=== PATIENT | male | born 1950 | race Hispanic/Latino ===

== ENCOUNTER 2017-06-23 17:15 | Inpatient (IN) | payer MEDICARE ==
[~2017-06-23] VITALS: Ht 170.2 cm; Wt 104.5 kg
[2017-06-23] MEDS: ZOSYN 3.375GM+NS 50ML 50 ML IV SCH ×2 (09:00→21:00)
[~2017-06-23 17:15] MED LIST: AMLO5TAB2 PO; CITA40TA6 PO; LEVO25TA54 PO; LISI10TA7 PO; METO50 PO; SEVE800T7 PO; SIMV10TA6 PO
[2017-06-23] MEDS ORDERED: ACETAMINOPHEN EXTRA STRENGTH 500 MG TABLET ONE (17:26)
[2017-06-23 17:59] LABS: BASOPHILS % (AUTO) 0.5 % (0.0-5.0); EOSINOPHILS % (AUTO) 0.6 % (0.0-8.0); LYMPHOCYTES % (AUTO) 3.3 % (21.0-51.0); MEAN CORPUSCULAR HGB CONC 34.4 g/dL (32.0-36.0); MONOCYTES % (AUTO) 4.1 % (3.0-13.0); NEUTROPHILS % (AUTO) 91.5 % (40.0-77.0); PLATELET COUNT (AUTO) 166 K/uL (130-400); RED BLOOD CELL COUNT(AUTO) 3.02 MIL/uL (4.50-6.20); RED CELL DISTRIBUTION WIDTH 14.2 % (11.0-15.5); WHITE BLOOD COUNT (AUTO) 13.4 K/uL (4.8-10.8)
[2017-06-23 18:15] LABS: INR 1.03 (0.85-1.15); PARTIAL THROMBOPLASTIN TIME 25.6 SEC (26.3-35.5); PROTHROMBIN TIME 10.8 SEC (9.6-11.6)
[2017-06-23] MEDS ORDERED: ZOSYN 3.375GM+NS 50ML 50 ML IV ONE (18:20)
[2017-06-23 18:28] LABS: ALANINE AMINOTRANSFERASE 16 U/L (12-78); ALBUMIN 3.5 g/dL (3.5-5.0); ASPARTATE AMINOTRANSFERASE 17 U/L (10-37); BILIRUBIN,TOTAL 0.5 mg/dL (0.2-1.0); CARBON DIOXIDE 30 mmol/L (21-32); CHLORIDE 101 mmol/L (101-111); CREATINE KINASE MB 0.9 ng/mL (0.5-3.6); CREATINE KINASE, TOTAL 111 U/L (21-232); GLOMERULAR FILTR. RATE CALC 7 mL/min (>60); GLUCOSE,RANDOM 96 mg/dL (70-105); MYOGLOBIN 281 ng/mL (10-92); POTASSIUM 3.8 mmol/L (3.5-5.1); SODIUM SERUM 141 mmol/L (136-145); TOTAL PROTEIN, SERUM 7.4 g/dL (6.0-8.3); TROPONIN I < 0.04 ng/mL (0.00-0.06); UREA NITROGEN, BLOOD 32 mg/dL (7-18)
[2017-06-23] MEDS ORDERED: VANCOMYCIN 1GM+NS 250ML 0 ML IV ONE (19:09)
[2017-06-23] MEDS ORDERED: VANCOMYCIN PROTOCOL PER PHARMACY IV SCH (20:00)
[2017-06-23] MEDS ORDERED: SODIUM CHLORIDE 0.9% 10 ML VIAL IVP SCH (20:00)
[2017-06-23] MEDS ORDERED: ACETAMINOPHEN 325 MG TAB PO PRN ×2 (20:00)
[2017-06-23] MEDS ORDERED: GLUCAGON 1MG KIT 1 MG ML IM PRN (20:00)
[2017-06-23] MEDS ORDERED: POTASSIUM CHLORIDE 10% ELIXIR 20 MEQ/15 ML UDCUP PO PRN (20:00)
[2017-06-23] MEDS ORDERED: POTASSIUM CHLORIDE 20 MEQ ERTAB PO PRN (20:00)
[2017-06-23] MEDS ORDERED: CLONIDINE HCL 0.1 MG TABLET PO PRN (20:00)
[2017-06-23] MEDS ORDERED: LACTULOSE 20 GM/30 ML UDCUP PO PRN (20:00)
[2017-06-23] MEDS ORDERED: POTASSIUM CHLORIDE 20MEQ/100ML 100 ML IV PRN (20:00)
[2017-06-23] MEDS ORDERED: DEXTROSE 50%-WATER 50 ML DISP.SYRIN IV PRN (20:00)
[2017-06-23] MEDS ORDERED: LIDOCAINE HCL-MPF 1% 2ML VIAL IJ PRN (20:00)
[2017-06-23] MEDS: INSULIN R PO SSI SQ SCH (21:00)
[2017-06-23 23:08] LABS: BAND NEUTROPHILS % (MANUAL) 7 % (0-2); EOSINOPHILS % (MANUAL) 1 % (1-6); LYMPHOCYTES % (MANUAL) 10 % (22-44); MAN.DIFF COMMENT-IMPRESSION MANUAL DIFFERENTIAL; MONOCYTES % (MANUAL) 3 % (2-9); PLATELET MORPHOLOGY COMMENT ADEQUATE; SEGMENTED NEUTROPHILS % 79 % (40-70)
[2017-06-23] MEDS ORDERED: SODIUM CHLORIDE 0.9% 250 ML IV ONE (23:20)
[2017-06-23] MEDS: VANCOMYCIN 500MG+NS 100ML 100 ML IV SCH (23:31)
[2017-06-24] VITALS (7 sets, daily range): BP systolic 123–165; BP diastolic 69–89
[2017-06-24] MEDS ORDERED: HYDRALAZINE HCL 20 MG/ML VIAL IV PRN (02:15)
[2017-06-24] MEDS ORDERED: GUAIFENESIN-DM 200/20 MG 10 ML PO PRN (02:15)
[2017-06-24] MEDS ORDERED: IPRATROPIUM/ALBUTEROL SULFATE 3 ML SOLUTION IH SCH (06:00)
[2017-06-24 06:08] LABS: BASOPHILS % (AUTO) 0.9 % (0.0-5.0); EOSINOPHILS % (AUTO) 0.2 % (0.0-8.0); HEMATOCRIT 27.7 % (42-54); LYMPHOCYTES % (AUTO) 7.1 % (21.0-51.0); MEAN CORPUSCULAR HEMOGLOBIN 32.3 pg (27.0-33.0); MEAN CORPUSCULAR HGB CONC 33.3 g/dL (32.0-36.0); MEAN CORPUSCULAR VOLUME 96.8 fL (79-99); MONOCYTES % (AUTO) 6.2 % (3.0-13.0); NEUTROPHILS % (AUTO) 85.6 % (40.0-77.0); PLATELET COUNT (AUTO) 166 K/uL (130-400); RED BLOOD CELL COUNT(AUTO) 2.87 MIL/uL (4.50-6.20); RED CELL DISTRIBUTION WIDTH 14.1 % (11.0-15.5); WHITE BLOOD COUNT (AUTO) 12.3 K/uL (4.8-10.8)
[2017-06-24 06:23] LABS: POTASSIUM 4.1 mmol/L (3.5-5.1)
[2017-06-24 06:28] LABS: CREATININE 9.9 mg/dL (0.5-1.5)
[2017-06-24] MEDS: INSULIN R PO SSI SQ SCH ×4 (06:49→21:00)
[2017-06-24] MEDS: ZOSYN 3.375GM+NS 50ML 50 ML IV SCH ×2 (08:27→22:13)
[2017-06-24] MEDS: FAMOTIDINE 20MG TAB 20 MG TAB PO SCH (08:27)
[2017-06-24] MEDS: AMLODIPINE BESYLATE 5 MG TAB PO SCH (12:02)
[2017-06-24] MEDS: SEVELAMER HCL 800 MG TABLET PO SCH ×2 (12:02→17:35)
[2017-06-24] MEDS: IPRATROPIUM/ALBUTEROL SULFATE 3 ML SOLUTION IH SCH ×2 (13:51→21:45)
[2017-06-24] MEDS ORDERED: VANCOMYCIN 1GM+NS 250ML 250 ML IV SCH (15:00)
[2017-06-24] MEDS: VANCOMYCIN 500MG+NS 100ML 100 ML IV SCH (21:00)
[2017-06-25 04:00] VITALS: BP 157/71
[2017-06-25 04:48] LABS: BASOPHILS % (AUTO) 0.9 % (0.0-5.0); EOSINOPHILS % (AUTO) 1.8 % (0.0-8.0); HEMATOCRIT 25.6 % (42-54); LYMPHOCYTES % (AUTO) 11.1 % (21.0-51.0); MEAN CORPUSCULAR HEMOGLOBIN 34.1 pg (27.0-33.0); MEAN CORPUSCULAR HGB CONC 35.3 g/dL (32.0-36.0); MEAN CORPUSCULAR VOLUME 96.5 fL (79-99); MONOCYTES % (AUTO) 9.6 % (3.0-13.0); NEUTROPHILS % (AUTO) 76.6 % (40.0-77.0); PLATELET COUNT (AUTO) 157 K/uL (130-400); RED BLOOD CELL COUNT(AUTO) 2.65 MIL/uL (4.50-6.20); RED CELL DISTRIBUTION WIDTH 14.3 % (11.0-15.5); WHITE BLOOD COUNT (AUTO) 6.3 K/uL (4.8-10.8)
[2017-06-25 05:06] LABS: POTASSIUM 3.9 mmol/L (3.5-5.1)
[2017-06-25 05:12] LABS: CREATININE 11.7 mg/dL (0.5-1.5)
[2017-06-25] MEDS: INSULIN R PO SSI SQ SCH ×4 (06:08→21:00)
[2017-06-25] MEDS: IPRATROPIUM/ALBUTEROL SULFATE 3 ML SOLUTION IH SCH ×3 (06:52→21:18)
[2017-06-25 08:26] VITALS: BP 151/79
[2017-06-25] MEDS: SEVELAMER HCL 800 MG TABLET PO SCH ×3 (08:31→17:08)
[2017-06-25] MEDS: AMLODIPINE BESYLATE 5 MG TAB PO SCH (08:32)
[2017-06-25] MEDS: FAMOTIDINE 20MG TAB 20 MG TAB PO SCH (08:32)
[2017-06-25] MEDS: ENOXAPARIN SODIUM 30 MG/0.3 ML SQ SCH (08:32)
[2017-06-25] MEDS: ZOSYN 3.375GM+NS 50ML 50 ML IV SCH ×2 (08:32→22:09)
[2017-06-25 11:56] VITALS: BP 165/80
[2017-06-25] MEDS ORDERED: 0.9% SODIUM CHLORIDE 250 ML IV BAG IV PRN (12:45)
[2017-06-25] MEDS ORDERED: SODIUM CHLORIDE 0.9% 1000ML 1,000 ML IV PRN (12:45)
[2017-06-25] MEDS ORDERED: ALBUMIN (HUMAN) 25% 100 ML IV PRN (12:45)
[2017-06-25] MEDS ORDERED: HEPARIN SODIUM 5000UNIT/ML 1ML VIAL IJ PRN (12:45)
[2017-06-25] MEDS ORDERED: EPOETIN ALFA 3,000 UNIT/ML ML SQ NR (15:00)
[2017-06-25 16:23] VITALS: BP 169/64
[2017-06-25] MEDS ORDERED: EPOETIN ALFA 20,000 UNIT/ML VIAL SQ NR (17:43)
[2017-06-25] MEDS ORDERED: COMPOUND IV REFRIGERATED 1 EACH IVSOLN MISC PRN (18:45)
[2017-06-25 19:56] VITALS: BP 153/76
[2017-06-25] MEDS ORDERED: ATORVASTATIN CALCIUM 10 MG TABLET PO SCH (21:00)
[2017-06-25] MEDS: METOPROLOL TARTRATE 50 MG TAB PO SCH (22:08)
[2017-06-25] MEDS ORDERED: GUAIFENESIN-DM 200/20 MG 10 ML PO PRN (22:30)
[2017-06-26] VITALS: BP 164/70
[2017-06-26 04:00] VITALS: BP 154/77
[2017-06-26 04:02] LABS: BASOPHILS % (AUTO) 0.9 % (0.0-5.0); EOSINOPHILS % (AUTO) 3.4 % (0.0-8.0); HEMATOCRIT 27.3 % (42-54); MEAN CORPUSCULAR HEMOGLOBIN 32.6 pg (27.0-33.0); MEAN CORPUSCULAR VOLUME 95.8 fL (79-99); NEUTROPHILS % (AUTO) 70.7 % (40.0-77.0); NUCLEATED RED BLOOD CELLS 0.1 % (0.0-0.19); PLATELET COUNT (AUTO) 170 K/uL (130-400); RED BLOOD CELL COUNT(AUTO) 2.85 MIL/uL (4.50-6.20); RED CELL DISTRIBUTION WIDTH 14.3 % (11.0-15.5); WHITE BLOOD COUNT (AUTO) 5.6 K/uL (4.8-10.8)
[2017-06-26 04:24] LABS: POTASSIUM 3.8 mmol/L (3.5-5.1)
[2017-06-26 04:36] LABS: CREATININE 8.7 mg/dL (0.5-1.5)
[2017-06-26] MEDS: INSULIN R PO SSI SQ SCH (06:15)
[2017-06-26] MEDS: IPRATROPIUM/ALBUTEROL SULFATE 3 ML SOLUTION IH SCH (06:16)
[2017-06-26] MEDS ORDERED: LEVOTHYROXINE 25 MCG TABLET PO SCH (06:30)
[2017-06-26 08:08] VITALS: BP 173/78
[2017-06-26] MEDS ORDERED: LISINOPRIL 10 MG TABLET PO SCH (09:00)
[2017-06-26] MEDS ORDERED: CITALOPRAM 20 MG TABLET PO SCH (09:00)
[2017-06-26] MEDS: FAMOTIDINE 20MG TAB 20 MG TAB PO SCH (09:12)
[2017-06-26] MEDS: METOPROLOL TARTRATE 50 MG TAB PO SCH (09:12)
[2017-06-26] MEDS: SEVELAMER HCL 800 MG TABLET PO SCH (09:12)
[2017-06-26] MEDS: ZOSYN 3.375GM+NS 50ML 50 ML IV SCH (09:12)
[2017-06-26] MEDS: AMLODIPINE BESYLATE 5 MG TAB PO SCH (09:12)
[2017-06-26] MEDS: ENOXAPARIN SODIUM 30 MG/0.3 ML SQ SCH (09:13)
== END 2017-06-26 11:30 | disposition home or self-care (01) | DRG 871 ==
LOC: EDH 17:15 → EDHIP 19:40 → OBSVTOIN 19:40 → 3CH 21:26
PROVIDERS: ADMIT Family Medicine; ATTEND Family Medicine
PROC: 5A1D70Z Performance of Urinary Filtration, Intermittent, Less than 6 Hours Per Day (ICD-10-PCS; principal; 2017-06-25)
DX: A41.9 Sepsis, unspecified organism (principal); N18.6 End stage renal disease; I12.0 Hypertensive chronic kidney disease with stage 5 chronic kidney disease or end stage renal disease; E11.22 Type 2 diabetes mellitus with diabetic chronic kidney disease; Z93.0 Tracheostomy status; L03.116 Cellulitis of left lower limb; W19.XXXA Unspecified fall, initial encounter; D63.8 Anemia in other chronic diseases classified elsewhere; E03.9 Hypothyroidism, unspecified; E78.00 Pure hypercholesterolemia, unspecified; E78.5 Hyperlipidemia, unspecified; I25.10 Atherosclerotic heart disease of native coronary artery without angina pectoris; J44.9 Chronic obstructive pulmonary disease, unspecified; Z99.2 Dependence on renal dialysis; Z87.891 Personal history of nicotine dependence; Z86.73 Personal history of transient ischemic attack (TIA), and cerebral infarction without residual deficits; Y93.89 Activity, other specified; Y92.89 Other specified places as the place of occurrence of the external cause; Y99.8 Other external cause status; Z83.3 Family history of diabetes mellitus; Z82.49 Family history of ischemic heart disease and other diseases of the circulatory system
CPT/HCPCS: 36415; 71045; 71250; 80048; 80053; 82550; 82553; 82948; 83605; 83874; 84484; 85025; 85610; 85730; 87040; 87804; 90935; 93005; 94640; 94664; J0360; J0885; J1650; J2543; J3370; J7030

== ENCOUNTER 2019-03-31 20:05 | Observation (INO) | payer MEDICARE ==
[~2019-03-31] VITALS: Ht 170.2 cm; Wt 91.7 kg
[~2019-03-31 20:05] MED LIST changes: -AMLO5TAB2 PO; +AMLO5TAB9 PO; +HYDR-2132 PO; +LISI-613 PO; -LISI10TA7 PO; -SIMV10TA6 PO; +SIMV10TA97 PO
[2019-03-31 20:56] LABS: BASOPHILS % (AUTO) 1.1 % (0.0-5.0); EOSINOPHILS % (AUTO) 3.4 % (0.0-8.0); HEMATOCRIT 32.8 % (42-54); LYMPHOCYTES % (AUTO) 8.6 % (21.0-51.0); MEAN CORPUSCULAR HEMOGLOBIN 30.2 pg (27.0-33.0); MEAN CORPUSCULAR HGB CONC 30.8 g/dL (32.0-36.0); MEAN CORPUSCULAR VOLUME 98.2 fL (79-99); MONOCYTES % (AUTO) 9.7 % (3.0-13.0); NEUTROPHILS % (AUTO) 76.8 % (40.0-77.0); PLATELET COUNT (AUTO) 177 K/uL (130-400); RED BLOOD CELL COUNT(AUTO) 3.34 MIL/uL (4.50-6.20); RED CELL DISTRIBUTION WIDTH 15.5 % (11.0-15.5); WHITE BLOOD COUNT (AUTO) 7.5 K/uL (4.8-10.8)
[2019-03-31 21:13] LABS: INR 1.11 (0.85-1.15); PARTIAL THROMBOPLASTIN TIME 28.2 SEC (26.3-35.5); PROTHROMBIN TIME 11.6 SEC (9.6-11.6)
[2019-03-31 21:14] LABS: CREATININE 6.1 mg/dL (0.5-1.5)
[2019-03-31 21:18] LABS: ALBUMIN 3.3 g/dL (3.5-5.0); BILIRUBIN,TOTAL 0.5 mg/dL (0.2-1.0); TOTAL PROTEIN, SERUM 7.3 g/dL (6.0-8.3)
[2019-04-01] MEDS ORDERED: LEVOFLOXACIN 500 MG/D5W 100 ML 100 ML ONE (00:19)
[2019-04-01] MEDS ORDERED: ZOSYN 3.375GM+NS 50ML 50 ML IV ONE (01:43)
[2019-04-01] MEDS ORDERED: VANCOMYCIN 1GM+NS 250ML 250 ML IV ONE (01:46)
[2019-04-01] MEDS ORDERED: GLUCAGON 1MG KIT 1 MG ML IM PRN (02:15)
[2019-04-01] MEDS ORDERED: DEXTROSE 50%-WATER 50 ML DISP.SYRIN IV PRN (02:15)
[2019-04-01] MEDS ORDERED: IPRATROPIUM/ALBUTEROL SULFATE 3 ML SOLUTION IH ONE (02:24)
[2019-04-01] MEDS: IPRATROPIUM/ALBUTEROL SULFATE 3 ML SOLUTION IH PRN ×2 (02:30→05:42)
[2019-04-01 02:45] VITALS: BP 173/84
--- NOTE | 2019-04-01 03:34 | NUR ---
HOME MEDS Pt did not bring home meds.No family available. Addendum: 04/01/19 at 0343 by PAMELA NIELSEN RN RN Amended: Links added.
--- NOTE | 2019-04-01 03:42 | NUR ---
av graft pt has non functioning graft to left upper arm.Left thigh av graft with bruit and thrill Addendum: 04/01/19 at 0343 by PAMELA NIELSNE RN RN Amended: Links added.
[2019-04-01] MEDS: INSULIN R PO SS1 SQ SCH ×3 (06:01→16:30)
[2019-04-01 07:30] VITALS: BP 153/75
[2019-04-01 11:00] VITALS: BP 148/79
[2019-04-01] MEDS ORDERED: LEVO250T59 PO (12:54)
--- NOTE | 2019-04-01 15:01 | NUR ---
[id number] patient signed SKAGGS Letter, I faxed SKAGGS Letter to [phone] and placed in chart under consent tab
--- NOTE | 2019-04-01 17:28 | NUR ---
SEVERAL ATTEMPTS TO CALL DAUGHTER AT PHONE NUMBER [phone],NO ANSWER AND UNABLE TO LEAVE MESSAGE, ALSO CALLED TO SON AT NUMBER [phone] ,NO ANSWER . PATIENT HAS BEEN DISCHARGED WILL CONT TO ATTEMPT TO GET OF HOLD OF DAUGHTER .
--- NOTE | 2019-04-01 17:47 | NUR ---
CALLED AGAIN TO PHONE NUMBER PROVIDED FOR DAUGHTER AND SON ,MESSAGE LEFT TO CALL BACK TO [facility] AT [phone] .. PENDING CALL BACK
[2019-04-02] MEDS ORDERED: LEVOFLOXACIN 250 MG/D5W 50ML 50 ML IVPB SCH
[2019-04-02] MEDS ORDERED: LEVOFLOXACIN 500 MG TABLET PO SCH (09:00)
== END 2019-04-01 19:14 | disposition home or self-care (01) ==
LOC: EDH 20:05 → EDHIP 23:45 → INTOOBSV 23:45 → 4DH 04-01 02:06
PROVIDERS: ADMIT Internal Medicine Nephrology; ATTEND Internal Medicine Nephrology
DX: J40 Bronchitis, not specified as acute or chronic (principal); J18.9 Pneumonia, unspecified organism; I12.0 Hypertensive chronic kidney disease with stage 5 chronic kidney disease or end stage renal disease; E11.22 Type 2 diabetes mellitus with diabetic chronic kidney disease; N18.6 End stage renal disease; E11.51 Type 2 diabetes mellitus with diabetic peripheral angiopathy without gangrene; I25.10 Atherosclerotic heart disease of native coronary artery without angina pectoris; Z99.2 Dependence on renal dialysis; Z98.84 Bariatric surgery status; Z93.0 Tracheostomy status; Z79.899 Other long term (current) drug therapy
CPT/HCPCS: 36415; 71045; 80053; 80074; 82550; 82948 ×3; 83605; 84484; 85025; 85610; 85730; 87040; 87804 ×2; 93005; 94640 ×2; 94664; 99285; G0378 ×19; J1956; J2543; J3370

== ENCOUNTER 2019-06-19 05:00 | Emergency (ER) | payer MEDICARE ==
[~2019-06-19 05:00] MED LIST changes: -AMLO5TAB9 PO; -CITA40TA6 PO; -HYDR-2132 PO; +LEVO250T59 PO; -LEVO25TA54 PO; -LISI-613 PO; -METO50 PO; -SEVE800T7 PO; -SIMV10TA97 PO
[2019-06-19 05:26] LABS: BASOPHILS % (AUTO) 1.1 % (0.0-5.0); EOSINOPHILS % (AUTO) 4.8 % (0.0-8.0); HEMATOCRIT 34.9 % (42-54); LYMPHOCYTES % (AUTO) 18.1 % (21.0-51.0); MEAN CORPUSCULAR HGB CONC 31.2 g/dL (32.0-36.0); MEAN CORPUSCULAR VOLUME 99.1 fL (79-99); MONOCYTES % (AUTO) 10.3 % (3.0-13.0); NEUTROPHILS % (AUTO) 65.2 % (40.0-77.0); PLATELET COUNT (AUTO) 177 K/uL (130-400); RED BLOOD CELL COUNT(AUTO) 3.52 MIL/uL (4.50-6.20); RED CELL DISTRIBUTION WIDTH 14.9 % (11.0-15.5); WHITE BLOOD COUNT (AUTO) 5.5 K/uL (4.8-10.8)
[2019-06-19 05:36] LABS: CREATININE 5.7 mg/dL (0.5-1.5); POTASSIUM 4.2 mmol/L (3.5-5.1)
[2019-06-19 05:40] LABS: INR 1.06 (0.85-1.15); PARTIAL THROMBOPLASTIN TIME 29.5 SEC (26.3-35.5); PROTHROMBIN TIME 11.4 SEC (9.6-11.6)
[2019-06-19 05:43] LABS: ALBUMIN 3.1 g/dL (3.5-5.0); BILIRUBIN,TOTAL 0.4 mg/dL (0.2-1.0); TOTAL PROTEIN, SERUM 7.1 g/dL (6.0-8.3)
== END 2019-06-19 07:08 | disposition home or self-care (01) ==
LOC: EDH 05:00
DX: T82.838A Hemorrhage due to vascular prosthetic devices, implants and grafts, initial encounter (principal); B37.2 Candidiasis of skin and nail; L89.159 Pressure ulcer of sacral region, unspecified stage; E11.9 Type 2 diabetes mellitus without complications; I10 Essential (primary) hypertension; Z99.2 Dependence on renal dialysis
CPT/HCPCS: 36415; 80053; 85025; 85610; 85730

== ENCOUNTER → 2019-06-29 | Outpatient (CLI) | payer MEDICARE ==
[~2019-06-29] MED LIST changes: +AMLO5TAB9 PO; +CITA-106 PO; +DONE5TAB33 PO; +LEVO25TA54 PO; +LIDOCAINE HCL 4% LTA SOL 4 ML VIAL TP ONE; +LISI10TA7 PO; +METO50 PO; +PREG50CA63 PO; +SEVE800 PO; +SIMV10TA97 PO
[2019-06-29 13:39] VITALS: BP 179/75
== END | disposition home or self-care (01) ==
LOC: WHH 10:00
PROVIDERS: ATTEND Family Medicine
DX: E11.622 Type 2 diabetes mellitus with other skin ulcer (principal); L89.153 Pressure ulcer of sacral region, stage 3; L98.492 Non-pressure chronic ulcer of skin of other sites with fat layer exposed; E11.22 Type 2 diabetes mellitus with diabetic chronic kidney disease; I12.0 Hypertensive chronic kidney disease with stage 5 chronic kidney disease or end stage renal disease; N18.6 End stage renal disease; Z99.2 Dependence on renal dialysis
CPT/HCPCS: 11042; 82948; A6196; A6213; G0463; 99215

== ENCOUNTER → 2019-07-13 | Outpatient (CLI) | payer MEDICARE ==
[~2019-07-13] MED LIST changes: +AMLO-257 PO; -AMLO5TAB9 PO; -LIDOCAINE HCL 4% LTA SOL 4 ML VIAL TP ONE
[2019-07-13 12:20] VITALS: BP 191/93
== END | disposition home or self-care (01) ==
LOC: WHH 10:30
PROVIDERS: ATTEND Family Medicine
DX: E11.622 Type 2 diabetes mellitus with other skin ulcer (principal); L89.153 Pressure ulcer of sacral region, stage 3; L98.491 Non-pressure chronic ulcer of skin of other sites limited to breakdown of skin; E11.22 Type 2 diabetes mellitus with diabetic chronic kidney disease; I12.0 Hypertensive chronic kidney disease with stage 5 chronic kidney disease or end stage renal disease; N18.6 End stage renal disease; Z99.2 Dependence on renal dialysis
CPT/HCPCS: A6021; A6197; G0463

== ENCOUNTER 2019-07-29 11:50 | Inpatient (IN) | payer MEDICARE ==
[2019-07-29] VITALS (16 sets, daily range): BP systolic 129–175; BP diastolic 63–84
[~2019-07-29 11:50] MED LIST changes: -AMLO-257 PO; -CITA-106 PO; -DONE5TAB33 PO; -LEVO25TA54 PO; -LISI10TA7 PO; -METO50 PO; -PREG50CA63 PO; -SEVE800 PO; -SIMV10TA97 PO
[2019-07-29 13:08] LABS: BASOPHILS % (AUTO) 1.2 % (0.0-5.0); EOSINOPHILS % (AUTO) 1.9 % (0.0-8.0); HEMATOCRIT 30.8 % (42-54); LYMPHOCYTES % (AUTO) 13.8 % (21.0-51.0); MEAN CORPUSCULAR HEMOGLOBIN 30.7 pg (27.0-33.0); MEAN CORPUSCULAR HGB CONC 31.2 g/dL (32.0-36.0); MEAN CORPUSCULAR VOLUME 98.4 fL (79-99); NEUTROPHILS % (AUTO) 73.8 % (40.0-77.0); PLATELET COUNT (AUTO) 203 K/uL (130-400); RED BLOOD CELL COUNT(AUTO) 3.13 MIL/uL (4.50-6.20); RED CELL DISTRIBUTION WIDTH 15.1 % (11.0-15.5); WHITE BLOOD COUNT (AUTO) 7.3 K/uL (4.8-10.8)
[2019-07-29 13:29] LABS: ALBUMIN 3.1 g/dL (3.5-5.0); BILIRUBIN,TOTAL 0.5 mg/dL (0.2-1.0); POTASSIUM 5.9 mmol/L (3.5-5.1); TOTAL PROTEIN, SERUM 6.5 g/dL (6.0-8.3)
[2019-07-29 13:30] LABS: CREATININE 11.4 mg/dL (0.5-1.5)
[2019-07-29 13:40] LABS: INR 1.13 (0.85-1.15); PARTIAL THROMBOPLASTIN TIME 29.6 SEC (26.3-35.5); PROTHROMBIN TIME 12.1 SEC (9.6-11.6)
[2019-07-29] MEDS ORDERED: CALCIUM GLUCONATE 1 GM/10 ML VIAL IV ONE (14:01)
[2019-07-29] MEDS ORDERED: DEXTROSE 50%-WATER 50 ML DISP.SYRIN IV ONE (14:02)
[2019-07-29] MEDS ORDERED: SODIUM BICARB 50MEQ 50ML VIAL ONE (14:02)
[2019-07-29] MEDS ORDERED: SODIUM CHLORIDE 0.9% 50 ML IV ONE (14:04)
[2019-07-29] MEDS ORDERED: INSULIN HUMULIN R 100 UNIT/ML 3ML ONE (14:04)
[2019-07-29] MEDS ORDERED: SODIUM POLYSTYRENE SULFONATE 15 GM/60 ML ML ONE (14:55)
[2019-07-29] MEDS ORDERED: CEFAZOLIN SODIUM 1 GM VIAL IVP PRN (16:00)
[2019-07-29] MEDS ORDERED: HYDRALAZINE HCL 20 MG/ML VIAL IV PRN (16:45)
[2019-07-29 17:13] LABS: MAGNESIUM 2.6 mg/dL (1.80-2.40); PHOSPHORUS 8.2 mg/dL (2.5-4.9)
[2019-07-29] MEDS ORDERED: IPRATROPIUM 0.5 MG/2.5 ML INH IH PRN (18:00)
[2019-07-29] MEDS ORDERED: SODIUM CHLORIDE 0.9% 1000ML 1,000 ML IV ONE (18:54)
[2019-07-29] MEDS ORDERED: ALBUMIN (HUMAN) 25% 100 ML IV ONE (19:11)
[2019-07-29] MEDS ORDERED: LIDOCAINE PF 2% 5ML ABBOJECT ONE (19:12)
[2019-07-29] MEDS ORDERED: MIDAZOLAM HCL 1 MG/ML 2ML VIAL ONE (19:13)
[2019-07-29] MEDS ORDERED: PROPOFOL 10 MG/ML 20ML VIAL IV ONE (19:13)
[2019-07-29] MEDS ORDERED: ONDANSETRON HCL 4 MG/2 ML VIAL ONE (19:13)
[2019-07-29] MEDS ORDERED: FENTANYL CITRATE PF 50 MCG/1 ML 2ML VIAL ONE ×2 (19:14→20:21)
[2019-07-29] MEDS ORDERED: ROCURONIUM 10MG/1ML SYR 10 MG/ML ML ONE (19:14)
[2019-07-29] MEDS ORDERED: CEFAZOLIN SODIUM 1 GM VIAL ONE (19:51)
[2019-07-29 19:57] LABS: ABG BASE EXCESS -8.5 mmol/L (-2.0-3.0); ABG HCO3 17.9 mmol/L (21.0-28.0); ABG OXYGEN SATURATION 98.5 % (95.0-99.0); ABG PCO2 41 mmHg (35-48)
[2019-07-29] MEDS ORDERED: SODIUM BICARB 8.4% 50ML SYRINGE ONE (19:59)
[2019-07-29] MEDS ORDERED: GLYCOPYRROLATE 1 MG/5 ML SYRINGE ONE (20:31)
[2019-07-29] MEDS ORDERED: NEOSTIGMINE 5MG/5ML SYR IV ONE (20:31)
[2019-07-29] MEDS ORDERED: HEPARIN SODIUM 1000UNIT/ML 10ML VIAL ONE (20:40)
[2019-07-29] MEDS ORDERED: DEXTROSE 50%-WATER 25 GM/50 ML VIAL ONE (21:01)
[2019-07-29] MEDS ORDERED: TRAMADOL HCL 50 MG TABLET PO PRN ×2 (22:15)
[2019-07-29] MEDS ORDERED: ACETAMINOPHEN 325 MG TAB PO PRN (22:15)
--- NOTE | 2019-07-29 22:30 | NUR ---
PATIENT ARRIVED ON UNIT. A/OX4. ON 2L NC. NO RESPIRATORY DISTRESS NOTED. EDEMA TO BLE. PEDAL PULSES PRESENT VIA DOPPLER. LEFT INNER THIGH DRESSING CDI. POST REVISION OF AV GRAFT. NO ACTIVE BLEEDING. PATIENT HAS GARBLED SPEECH DUE TO HX OF VOCAL CORD DAMAGE.ABLE TO SWALLOW PILLS WHOLE AND DRINK THIN LIQUIDS WITHOUT ANY COMPLICATIONS. NO HOME MEDS AVAILABLE, FAMILY TO BRING. WILL CONTINUE TO MONITOR. CALL LIGHT WITHIN REACH.
[2019-07-30] VITALS: BP 114/56
[2019-07-30] MEDS ORDERED: CEFAZOLIN SODIUM 1 GM VIAL IVP SCH (03:00)
[2019-07-30 04:20] LABS: HEMATOCRIT 24.3 % (42-54); MEAN CORPUSCULAR HGB CONC 31.7 g/dL (32.0-36.0); RED BLOOD CELL COUNT(AUTO) 2.48 MIL/uL (4.50-6.20); RED CELL DISTRIBUTION WIDTH 15.3 % (11.0-15.5); WHITE BLOOD COUNT (AUTO) 5.7 K/uL (4.8-10.8)
[2019-07-30 04:39] LABS: POTASSIUM 5.6 mmol/L (3.5-5.1)
[2019-07-30 04:41] LABS: % IRON SATURATION 24.4 % (30-44)
[2019-07-30 04:42] VITALS: BP 121/53
[2019-07-30 04:54] LABS: CREATININE 12.1 mg/dL (0.5-1.5)
[2019-07-30] MEDS ORDERED: LEVOTHYROXINE 25 MCG TABLET PO SCH (06:30)
[2019-07-30 07:30] VITALS: BP 122/56
[2019-07-30] MEDS ORDERED: SEVELAMER HCL 800 MG TABLET PO SCH (08:00)
[2019-07-30] MEDS ORDERED: METOPROLOL TARTRATE 25 MG TAB PO SCH (09:00)
[2019-07-30] MEDS ORDERED: FAMOTIDINE/PF 20 MG/2 ML VIAL IV SCH (09:00)
[2019-07-30] MEDS ORDERED: AMLODIPINE BESYLATE 5 MG TAB PO SCH (09:00)
[2019-07-30 11:30] VITALS: BP 122/59
[2019-07-30] MEDS ORDERED: SODIUM CHLORIDE 0.9% 250 ML IV ONE (12:36)
--- NOTE | 2019-07-30 15:11 | NUR ---
DCP CM spoke to pt discussed dc plans. Pt is independent prior to admission, lives at home with daughter. Pt has a provider 3.5hrs/day, uses cane, goes to [facility]. Denies any other equipments/services. Feels safe to go back home, daughter able to assist with transportation and needs as necessary. DC plan to home once stable. CM to cont to follow up. Addendum: 07/30/19 at 1512 by GABRIELA COLON LVN CM Amended: Links added.
[2019-07-30 16:00] VITALS: BP 149/55
[2019-07-30] MEDS ORDERED: PREG50CA63 PO (16:48)
[2019-07-30] MEDS ORDERED: SIMV10TA97 PO (16:48)
[2019-07-30] MEDS ORDERED: LEVO25TA54 PO (16:48)
[2019-07-30] MEDS ORDERED: CITA-106 PO (16:48)
[2019-07-30] MEDS ORDERED: METO50 PO (16:48)
[2019-07-30] MEDS ORDERED: DONE5TAB33 PO (16:48)
[2019-07-30] MEDS ORDERED: AMLO-257 PO (16:48)
[2019-07-30] MEDS ORDERED: LISI10TA7 PO (16:48)
[2019-07-30] MEDS ORDERED: SEVE800 PO (16:48)
[2019-07-30] MEDS ORDERED: SIMVASTATIN 20 MG TABLET PO SCH (21:00)
[2019-07-31 09:13] LABS: HEPATITIS A ANTIBODY IGM Negative (Negative); HEPATITIS B CORE IGM Negative (Negative); HEPATITIS Bs ANTIGEN SCREEN P Negative (Negative)
== END 2019-07-30 19:20 | disposition home or self-care (01) | DRG 252 ==
LOC: EDH 11:50 → EDHIP 16:33 → 4DH 22:11
PROVIDERS: ADMIT Internal Medicine; ATTEND Internal Medicine
PROC: 04WY0JZ Revision of Synthetic Substitute in Lower Artery, Open Approach (ICD-10-PCS; principal; 2019-07-29 19:10)
PROC: 5A1D70Z Performance of Urinary Filtration, Intermittent, Less than 6 Hours Per Day (ICD-10-PCS; 2019-07-30)
PROC: 30233N1 Transfusion of Nonautologous Red Blood Cells into Peripheral Vein, Percutaneous Approach (ICD-10-PCS; 2019-07-30)
DX: T82.838A Hemorrhage due to vascular prosthetic devices, implants and grafts, initial encounter (principal); N18.6 End stage renal disease; D62 Acute posthemorrhagic anemia; I12.0 Hypertensive chronic kidney disease with stage 5 chronic kidney disease or end stage renal disease; Y84.1 Kidney dialysis as the cause of abnormal reaction of the patient, or of later complication, without mention of misadventure at the time of the procedure; E87.5 Hyperkalemia; E03.9 Hypothyroidism, unspecified; E11.22 Type 2 diabetes mellitus with diabetic chronic kidney disease; E78.5 Hyperlipidemia, unspecified; Z82.49 Family history of ischemic heart disease and other diseases of the circulatory system; I25.10 Atherosclerotic heart disease of native coronary artery without angina pectoris; Z83.3 Family history of diabetes mellitus; Z96.642 Presence of left artificial hip joint; Z98.84 Bariatric surgery status; Z99.2 Dependence on renal dialysis
CPT/HCPCS: 36415; 36430; 71045; 72170; 73552; 80048; 80053; 80074; 82435; 82803; 82947; 82948; 83036; 83540; 83550; 83605; 83735; 83880; 84100; 84132; 84295; 84484; 85018; 85025; 85027; 85610; 85730; 86850; 86900; 86901; 86922; 90935; 93005; 94664; G0378; J0610; J0690; J1644; J1815; J2001; J2250; J2405; J2704; J2710; J3010; J3490; J7030; J7040; J7050; J7070; P9016; P9047

== ENCOUNTER → 2019-08-03 | Outpatient (CLI) | payer MEDICARE ==
[~2019-08-03] MED LIST changes: +AMLO5TAB9 PO; +CITA-106 PO; +DONE5TAB33 PO; +LEVO25TA54 PO; +LISI10TA7 PO; +METO50 PO; +PREG50CA63 PO; +SEVE800 PO; +SIMV10TA97 PO
== END | disposition home or self-care (01) ==
LOC: WHH 13:00
PROVIDERS: ATTEND Family Medicine
DX: E11.622 Type 2 diabetes mellitus with other skin ulcer (principal); L89.153 Pressure ulcer of sacral region, stage 3; L98.492 Non-pressure chronic ulcer of skin of other sites with fat layer exposed; L89.312 Pressure ulcer of right buttock, stage 2; L98.411 Non-pressure chronic ulcer of buttock limited to breakdown of skin; E11.22 Type 2 diabetes mellitus with diabetic chronic kidney disease; I12.0 Hypertensive chronic kidney disease with stage 5 chronic kidney disease or end stage renal disease; N18.6 End stage renal disease; I25.10 Atherosclerotic heart disease of native coronary artery without angina pectoris; E78.5 Hyperlipidemia, unspecified; E03.9 Hypothyroidism, unspecified; Z98.84 Bariatric surgery status; Z99.2 Dependence on renal dialysis; Z96.642 Presence of left artificial hip joint; Z86.73 Personal history of transient ischemic attack (TIA), and cerebral infarction without residual deficits
CPT/HCPCS: 11042; A6021; A6197; A6213

== ENCOUNTER 2019-08-06 21:30 | Inpatient (IN) | payer MEDICARE ==
[~2019-08-06] VITALS: Ht 170.2 cm; Wt 92.4 kg
[2019-08-06] MEDS ORDERED: ZOSYN 3.375GM+NS 50ML 50 ML IV ONE (22:41)
[2019-08-06] MEDS ORDERED: ACETAMINOPHEN EXTRA STRENGTH 500 MG TABLET ONE (22:41)
[2019-08-06] MEDS ORDERED: VANCOMYCIN 1GM+NS 250ML 250 ML IV ONE (23:13)
[2019-08-07] VITALS (7 sets, daily range): BP systolic 135–175; BP diastolic 60–80; PULSE 62–92; RESP 16–19; TEMP 97.6–98.6
[2019-08-07] MEDS ORDERED: ACETAMINOPHEN 325 MG TAB PO PRN ×2 (01:00)
[2019-08-07] MEDS ORDERED: NITROGLYCERIN 0.4 MG SL TAB SL PRN (01:00)
[2019-08-07] MEDS ORDERED: DIPHENHYDRAMINE HCL 25 MG CAPSULE PO PRN (01:00)
[2019-08-07] MEDS ORDERED: ONDANSETRON HCL 4 MG/2 ML VIAL IV PRN (01:00)
[2019-08-07] MEDS ORDERED: VANCOMYCIN PROTOCOL PER PHARMACY IV PRN (01:00)
[2019-08-07] MEDS ORDERED: HYDROCODONE/ACETAMINOPHEN 5/325 MG TAB PO PRN ×2 (01:00)
[2019-08-07] MEDS ORDERED: GLUCAGON 1MG KIT 1 MG ML IM PRN (01:45)
[2019-08-07] MEDS ORDERED: DEXTROSE 50%-WATER 50 ML DISP.SYRIN IV PRN (01:45)
[2019-08-07] MEDS: ZOSYN 3.375GM+NS 50ML 50 ML IV SCH ×2 (05:42→17:15)
[2019-08-07] MEDS: INSULIN HUMULIN R 100 UNIT/ML 3ML SQ SCH ×4 (05:48→20:27)
[2019-08-07] MEDS ORDERED: COMPOUND IV REFRIGERATED 1 EACH IVSOLN MISC PRN (06:30)
[2019-08-07] MEDS: FAMOTIDINE 20MG TAB 20 MG TAB PO SCH (09:09)
[2019-08-07] MEDS: HEPARIN SODIUM 5000UNIT/ML 1ML VIAL SQ SCH ×3 (09:10→20:26)
--- NOTE | 2019-08-07 09:34 | NUR ---
CHART CHECK COMPLETED. Pt IS A 68 Y.O. MALE ADMITTED SECONDARY TO LEFT THIGH WOUND INFECTION. Pt HAS A PAST MEDICAL HISTORY SIGNIFICANT FOR ESRD-HD, DM, HYPERTENSION, VOCAL CORD INJURY, HIP SX, ABDOMINAL SX. Pt CURRENTLY ON REGULAR TEXTURE DIET (RENAL,HC75). SKILLED SPEECH THERAPY NOT WARRANTED AT THIS TIME. PLEASE REQUEST FORMAL SPEECH/SWALLOW EVAL IF Pt EXHIBITS +S/S OF ASPIRATION OF COUGH RESPONSE, THROAT CLEAR, OR WET VOCAL QUALITY AT MEAL TIMES. -ADMISSION CHART CHECK COMPLETED. Addendum: 08/07/19 at 0941 by BRIDGETTE GAMA, [facility] Amended: Links added.
[2019-08-07] MEDS ORDERED: VANCOMYCIN PROTOCOL PER PHARMACY IV SCH (09:45)
--- NOTE | 2019-08-07 13:28 | NUR ---
DR. HAIRSTON SPOKE WITH DR HAIRSTON AND HE WILL COME AND SEE PT REGARDING GRAFT TO
--- NOTE | 2019-08-07 13:30 | NUR ---
MET W PATIENT FOR DC PLANNING LIVES WITH DAUGHTER AND HER FAMILY- TAKES TRANSPORT TO HD TTS AT [facility] IN [place]. DAUGHTER WILL SUPPLY TRANSPORT HOME. USES A WALKER , A ROLLING WALKER AND A WHEELCHAIR AT HOME, HAS SHOWER CHAIR WELL, AND HOME IS SAFE AND ACCESSIBLE. HAS PROVIDER BUT DOES NOT KNOW HOW MANY HOURS, AND DAUGHTER IS PROVIDER DCP IS HOME- IF NEED ABX, CAN BE GIVEN AT THE HD CENTER. PENDING CULTURE/ABX DETERMINATION Addendum: 08/07/19 at 1817 by KIMBERLY DE LEON RN CM Amended: Links added.
--- NOTE | 2019-08-07 14:45 | NUR ---
NUTRITION EDUCATION RD provided Renal Dialysis, Diabetes Nutrition Education via phone secondary to Contact Isolation protocol. RD reviewed handouts with Pt and provided Nutrition recommendations and answered all Pt questions. Pt verbalized understanding. Handouts placed in Pt chart. Pt notified. Addendum: 08/07/19 at [address] Amended: Links added.
[2019-08-08 04:10] VITALS: BP 152/83; PULSE 70; RESP 18; TEMP 98.2
[2019-08-08] MEDS: ZOSYN 3.375GM+NS 50ML 50 ML IV SCH ×2 (05:29→17:07)
[2019-08-08] MEDS: INSULIN HUMULIN R 100 UNIT/ML 3ML SQ SCH ×4 (07:30→21:00)
[2019-08-08 09:20] VITALS: BP 163/68; PULSE 73; RESP 16; TEMP 97.8
[2019-08-08] MEDS: FAMOTIDINE 20MG TAB 20 MG TAB PO SCH (09:46)
[2019-08-08] MEDS: HEPARIN SODIUM 5000UNIT/ML 1ML VIAL SQ SCH ×3 (09:52→21:26)
[2019-08-08 11:30] VITALS: BP 154/72; PULSE 65; RESP 16; TEMP 97.8
[2019-08-08] MEDS ORDERED: EPOETIN ALFA 10,000 UNIT/ML VIAL SQ SCH (15:00)
[2019-08-08 16:45] VITALS: BP 153/78; PULSE 65; RESP 18; TEMP 97.7
--- NOTE | 2019-08-08 17:55 | NUR ---
HD HD ENDED PT YAIR TX WELL, V/S STABLE TOTAL OF 1.7 LITERS REMOVED, TOTAL OF 3 HRS.
--- NOTE | 2019-08-08 18:09 | NUR ---
DRESSING DRESSING CHANGED AND CLEANED WITH NS, ALSO SWAB.
[2019-08-08 20:48] VITALS: BP 149/68; PULSE 76; RESP 20; TEMP 98.1
[2019-08-08 23:49] VITALS: BP 168/72; PULSE 71; RESP 20; TEMP 98.2
[2019-08-09 03:53] VITALS: BP 165/70; PULSE 69; RESP 20; TEMP 98.1
[2019-08-09] MEDS: INSULIN HUMULIN R 100 UNIT/ML 3ML SQ SCH ×4 (05:48→21:00)
[2019-08-09] MEDS: ZOSYN 3.375GM+NS 50ML 50 ML IV SCH ×2 (05:48→18:28)
[2019-08-09] MEDS: HEPARIN SODIUM 5000UNIT/ML 1ML VIAL SQ SCH ×3 (08:13→20:15)
[2019-08-09 08:37] VITALS: BP 164/72; PULSE 67; RESP 20; TEMP 98.1
[2019-08-09] MEDS: FAMOTIDINE 20MG TAB 20 MG TAB PO SCH (09:00)
[2019-08-09 12:08] VITALS: BP 112/73; PULSE 63; RESP 19; TEMP 98.7
[2019-08-09 19:09] VITALS: BP 165/82; PULSE 67; RESP 19; TEMP 97.9
[2019-08-09 19:30] VITALS: BP 154/76; PULSE 71; RESP 18; TEMP 98
[2019-08-09 23:39] VITALS: BP 157/77; PULSE 69; RESP 18; TEMP 98.5
[2019-08-10 04:00] VITALS: BP 137/64; PULSE 74; RESP 18; TEMP 98
[2019-08-10] MEDS: ZOSYN 3.375GM+NS 50ML 50 ML IV SCH ×2 (05:41→17:53)
[2019-08-10] MEDS: INSULIN HUMULIN R 100 UNIT/ML 3ML SQ SCH ×4 (06:14→21:00)
[2019-08-10] MEDS: FAMOTIDINE 20MG TAB 20 MG TAB PO SCH (09:00)
[2019-08-10 09:18] VITALS: BP 173/77; PULSE 72; RESP 18; TEMP 97.7
[2019-08-10] MEDS: HEPARIN SODIUM 5000UNIT/ML 1ML VIAL SQ SCH ×3 (10:06→21:55)
[2019-08-10] MEDS ORDERED: HYDRALAZINE HCL 20 MG/ML VIAL IV PRN (11:15)
[2019-08-10] MEDS: SEVELAMER HCL 800 MG TABLET PO SCH ×2 (12:00→17:52)
[2019-08-10 13:33] VITALS: BP 167/68; PULSE 68; RESP 18; TEMP 96.1
[2019-08-10 16:00] VITALS: BP_SYST 112; BP_SYST 189; BP_DIAS 58; BP_DIAS 87; PULSE 105; PULSE 77; RESP 20; RESP 24; TEMP 100.6; TEMP 97.9
[2019-08-10 20:00] VITALS: BP 149/68; PULSE 81; RESP 18; TEMP 97.9
[2019-08-10] MEDS: DONEPEZIL HCL 5 MG TAB PO SCH (21:43)
[2019-08-10] MEDS: METOPROLOL TARTRATE 50 MG TAB PO SCH (21:44)
[2019-08-10] MEDS: PREGABALIN 25 MG CAP PO SCH (21:44)
[2019-08-10] MEDS: SIMVASTATIN 10 MG TABLET PO SCH (21:44)
[2019-08-11] VITALS: BP 132/69; PULSE 64; RESP 16; TEMP 98
[2019-08-11 04:00] VITALS: BP 142/86; PULSE 69; RESP 18; TEMP 97.8
[2019-08-11] MEDS: ZOSYN 3.375GM+NS 50ML 50 ML IV SCH ×2 (05:34→18:25)
[2019-08-11] MEDS: LEVOTHYROXINE 25 MCG TABLET PO SCH (05:34)
[2019-08-11] MEDS: INSULIN HUMULIN R 100 UNIT/ML 3ML SQ SCH ×4 (06:26→20:34)
--- NOTE | 2019-08-11 06:32 | NUR ---
0632: Dr. Cantu paged via answering service, recieved a critical result of creatinine of 12.0. 0637: Dr. Cantu returned call informed of above, stated it would be that way, just to order the dialysis for today.
[2019-08-11] MEDS: SEVELAMER HCL 800 MG TABLET PO SCH ×3 (07:44→18:24)
[2019-08-11] MEDS: METOPROLOL TARTRATE 50 MG TAB PO SCH ×2 (07:45→20:30)
[2019-08-11] MEDS: LISINOPRIL 10 MG TABLET PO SCH (07:45)
[2019-08-11] MEDS: CITALOPRAM 20 MG TABLET PO SCH (07:45)
[2019-08-11] MEDS: AMLODIPINE BESYLATE 5 MG TAB PO SCH (07:45)
[2019-08-11] MEDS: PREGABALIN 25 MG CAP PO SCH ×2 (07:45→20:30)
[2019-08-11] MEDS: HEPARIN SODIUM 5000UNIT/ML 1ML VIAL SQ SCH ×3 (07:49→20:33)
[2019-08-11] MEDS: FAMOTIDINE 20MG TAB 20 MG TAB PO SCH (07:54)
[2019-08-11 08:00] VITALS: BP 174/103; PULSE 66; RESP 19; TEMP 97.4
[2019-08-11 12:09] VITALS: BP 127/67; PULSE 53; RESP 19; TEMP 97.8
--- NOTE | 2019-08-11 15:26 | NUR ---
CM Note: [facility] pending approval CM spoke to pt daughter Lien Hull discussed Md recs, made aware pt agreeable for [facility] telephone consent obtained KOJO, dtr agreeable, telephone consent KOJO obtained for [facility]. Faxed order, clinicals, Covid Transfer Assessment, confirmation received. Spoke to Shaheen anna/Ponce aware dcp once approved. Pt pending approval. MOT semi-filled out, pending to be completed once approval received. EMS arranged and faxed for today in case pt receive approval. Primary nurse aware. CM to cont to follow up.
[2019-08-11 16:00] VITALS: BP 142/55; PULSE 63; RESP 18; TEMP 97.9
[2019-08-11 19:30] VITALS: BP 156/68; PULSE 72; RESP 18; TEMP 97.7
[2019-08-11] MEDS: SIMVASTATIN 10 MG TABLET PO SCH (20:30)
[2019-08-11] MEDS: DONEPEZIL HCL 5 MG TAB PO SCH (20:30)
[2019-08-12] VITALS (8 sets, daily range): BP systolic 143–158; BP diastolic 68–94; PULSE 54–70; RESP 18–20; TEMP 97.4–98.8
[2019-08-12] MEDS: ZOSYN 3.375GM+NS 50ML 50 ML IV SCH ×2 (05:32→18:08)
[2019-08-12] MEDS: INSULIN HUMULIN R 100 UNIT/ML 3ML SQ SCH ×4 (07:30→20:56)
[2019-08-12] MEDS: LEVOTHYROXINE 25 MCG TABLET PO SCH (07:38)
[2019-08-12] MEDS: METOPROLOL TARTRATE 50 MG TAB PO SCH ×2 (09:00→20:56)
[2019-08-12] MEDS: FAMOTIDINE 20MG TAB 20 MG TAB PO SCH (09:00)
[2019-08-12] MEDS: SEVELAMER HCL 800 MG TABLET PO SCH ×3 (10:24→18:08)
[2019-08-12] MEDS: PREGABALIN 25 MG CAP PO SCH ×2 (10:25→20:56)
[2019-08-12] MEDS: AMLODIPINE BESYLATE 5 MG TAB PO SCH (10:25)
[2019-08-12] MEDS: CITALOPRAM 20 MG TABLET PO SCH (10:25)
[2019-08-12] MEDS: LISINOPRIL 10 MG TABLET PO SCH (10:25)
[2019-08-12] MEDS: HEPARIN SODIUM 5000UNIT/ML 1ML VIAL SQ SCH ×3 (10:32→20:58)
--- NOTE | 2019-08-12 12:24 | NUR ---
CM Note: [facility] approval CM spoke to Shaheen anna/Ponce, pt has approval. MOT filled out, pending and jake new to sign. EMS arranged and faxed for today, primary nurse aware to call [facility] once pt ready to dc. Primary nurse aware. CM to cont to follow up.
--- NOTE | 2019-08-12 12:45 | NUR ---
SUSTAINED UNWITNESSED FALL IN ROOM ANALYTICAL RESEARCH CHEMIST Fawn GARCIA WAS IN NURSES STATION IN 3C AND REPORTED TO ME THAT SHE HEARD A NOISE AND WHEN SHE LOOKED IN ROOM 315 THAT SHE SAW PATIENT ON THE FLOOR. I WENT INTO PATIENTS ROOM AND ASSESSED PATIENT BEFORE WE PICKED HIM UP. PATIENT REPORTS NO PAIN AND SIGNS OF INJURY NOTED AT HIS TIME. MYSELF AND 2 CERNER ANALYST'S HELPED TO BROKERAGE PURCHASE AND SALE CLERK PATIENT -FROM FLOOR AND TRANSFERRED TO NEARBY CHAIR. OBTAINED VS BP 151/68, HR 70, O2 SAT 97% ON ROOM AIR. I ASKED PATIENT WAS HAPPENED AND PATIENT STATED "I WAS WALKING TO THE BATHROOM." PATIENT WAS USING CALL LIGHT FOR ASSISTANCE TO THE BATHROOM SINCE THE START OF SHIFT. I ASKED PATIENT WHY DID HE NOT CALL FOR HELP NOW AND PATIENT REPLIED "I DON'T KNOW". I REMINDED PATIENT HOW IMPORTANT USING CALL LIGHT IS TO HAVE STAFF HELP WITH WALKING TO THE BATHROOM AND PATIENT NODDED HIS HEAD AND SAID "I KNOW." I PLACED CALL LIGHT NEAR PATIENT AND REMINDED HIM TO CALL IF HE NEEDS HELP. INFORMED PT TO INFORM NURSING STAFF IF HE BEGINS TO FEEL PAIN AND PATIENT VERBALIZED UNDERSTANDING.
--- NOTE | 2019-08-12 12:50 | NUR ---
HOSPITALIST PERSONAL LINES UNDERWRITER NOTIFIED OF FALL SPOKE TO Jamie LEDBETTER NP FOR DR. CROSS AND INFORMED OF FALL INCIDENT
--- NOTE | 2019-08-12 17:22 | NUR ---
FAMILY REPORTS CALLED CARY MENDOZA [phone] TO INFORM THAT PT WOULD BE TRANSFERRED TO [facility] TODAY TO WHICH Alecia MENDOZA REPLIED THAT SHE WAS PATIENTS [id number] AND THAT SHE WOULD NOT FEEL COMFORTABLE GIVING PERMISSION TO ARRANGE TO TRANSFER TO ANOTHER FACILITY. Alecia MENDOZA ASKED ME TO CALL HER AND PATIENTS SON, SVETLANA MENDOZA TO OBTAIN ANY SORT OF PERMISSION TO ARRANGE FOR TRANSFERRING TO ANOTHER FACILITY. Alecia MENDOZA REPORTS THAT SHE HAS SPOKE TO NURSES TAKING CARE OF PATIENT VIA TELEPHONE, BUT THAT SHE WAS NOT AWARE OF PLAN TO TRANSFER THE PATIENT. I THEN RECEIVED PHONE CALL FROM PATIENTS , SHARAN MENDOZA AND DAUGHTER, FREDA, AND THEY TOLD ME THAT THEY WERE ALSO WAS NOT AWARE THAT HER [PATIENT] WOULD BE TRANSFERRED TO ANOTHER FACILITY AND DOES NOT WANT HER TO BE TRANSFERRED.
--- NOTE | 2019-08-12 17:30 | NUR ---
Jamie LEDBETTER NP ORDERED TO HOLD TRANSFER CM ARE GONE FOR THE DAY. CALLED Jamie LEDBETTER NP TO REPORT FAMILY COMPLAINTS. REPLIED TO HOLD TRANSFER UNTIL DISCHARGE PLAN CAN BE CLARIFIED.
[2019-08-12] MEDS: DONEPEZIL HCL 5 MG TAB PO SCH (20:55)
[2019-08-12] MEDS: SIMVASTATIN 10 MG TABLET PO SCH (20:55)
[2019-08-13 00:26] VITALS: BP 123/63; PULSE 55; RESP 18; TEMP 97.3
[2019-08-13 04:19] VITALS: BP 128/70; PULSE 58; RESP 18; TEMP 97.4
[2019-08-13] MEDS: LEVOTHYROXINE 25 MCG TABLET PO SCH (05:37)
[2019-08-13] MEDS: ZOSYN 3.375GM+NS 50ML 50 ML IV SCH ×2 (05:37→18:00)
[2019-08-13] MEDS: INSULIN HUMULIN R 100 UNIT/ML 3ML SQ SCH ×4 (06:40→21:00)
[2019-08-13 07:44] VITALS: BP 140/69; PULSE 57; RESP 18; TEMP 97.5
[2019-08-13] MEDS: SEVELAMER HCL 800 MG TABLET PO SCH ×3 (08:28→17:05)
--- NOTE | 2019-08-13 08:30 | NUR ---
CM Note: Spouse agreeable to [facility] CM spoke to pt's spouse Karnia Hull regarding [facility] placement. Spouse verbalized she was uncomfortable to transfer patient yesterday, she was unsure how long pt will need abx iv and other treatments necessary. Explained purpose of [facility] and duration of abx as per Dr James's recommendations, wound care, as well as PT. Spouse verbalized she is ok for transfer today, thankful for the information. Aware pt will go by EMS. Primary nurse aware. AJ MICROBIOLOGICAL LAB TECHNICIAN made aware. EMS refaxed w/current date, primary nurse to call [facility] once pt ready to DC. CM to cont to follow up.
[2019-08-13] MEDS ORDERED: VANCOMYCIN 1.25 GM in SODIUM CHLORIDE 0.9% 250 ML IV SCH (09:00)
[2019-08-13] MEDS: LISINOPRIL 10 MG TABLET PO SCH (09:00)
[2019-08-13] MEDS: METOPROLOL TARTRATE 50 MG TAB PO SCH ×2 (09:00→21:36)
[2019-08-13] MEDS: PREGABALIN 25 MG CAP PO SCH ×2 (09:00→21:36)
[2019-08-13] MEDS: AMLODIPINE BESYLATE 5 MG TAB PO SCH (09:00)
[2019-08-13] MEDS: HEPARIN SODIUM 5000UNIT/ML 1ML VIAL SQ SCH ×3 (09:00→21:37)
[2019-08-13] MEDS: FAMOTIDINE 20MG TAB 20 MG TAB PO SCH (09:19)
[2019-08-13] MEDS: CITALOPRAM 20 MG TABLET PO SCH (09:19)
--- NOTE | 2019-08-13 09:22 | NUR ---
PATIENT TO RECEIVE HEMODIALYSIS TREATMENT TODAY TRANSFER TO [facility] AFTER HEMODIALYSIS TREATMENT
[2019-08-13 10:48] VITALS: BP 132/64; PULSE 53; RESP 18; TEMP 97.5
[2019-08-13] MEDS ORDERED: EPOETIN ALFA 10,000 UNIT/ML VIAL SQ SCH (14:00)
[2019-08-13] MEDS ORDERED: PHARMACY COMMUNICATION MISC SCH (14:45)
[2019-08-13 15:59] VITALS: BP 150/79; PULSE 77; RESP 18; TEMP 97.6
--- NOTE | 2019-08-13 18:20 | NUR ---
REPORT TO [facility] AND [facility] CALLED REPORT GIVEN TO TRACE Owen LVN OF [facility]. CONFIRMED MEDICATION RECONCILIATION RECEIVED. [facility] [phone] CALLED AND NOTIFIED PATIENT IN ROOM 315 AND READY TO BE PICKED UP AND TRANSFERRED TO [facility]. PATIENT IN AGREEMENT TO TRANSFER TO [facility], INFORMED HE WOULD BE TAKE VIA EMS AND WE ARE WAITING FOR AMBULANCE TO ARRIVE.
[2019-08-13] MEDS: SIMVASTATIN 10 MG TABLET PO SCH (21:36)
[2019-08-13] MEDS: DONEPEZIL HCL 5 MG TAB PO SCH (21:36)
--- NOTE | 2019-08-14 02:44 | NUR ---
DISCHARGE PATIENT AWAKE AND ALERT. VOICES ALL NEEDS. NO COMPLAINTS OF PAIN VOICED AT THIS TIME. VITALS STABLE.A FEBRILE. UP WITH WALKER. PATIENT LEFT VIA EMS VIA STRETCHER. NO SIGNS OF DISTRESS NOTED UPON DISCHARGE. ALL BELONGINGS TAKEN WITH. Addendum: 08/14/19 at 0246 by RENE MEDEL RN RN Amended: Links added.
[2019-08-14] MEDS ORDERED: VANCOMYCIN 1.5 GM in SODIUM CHLORIDE 0.9% 250 ML IV SCH (09:00)
== END 2019-08-14 02:50 | DRG 862 ==
LOC: EDH 21:30 → EDHIP 23:27 → 3CH 08-07 02:04
PROVIDERS: ADMIT Internal Medicine; ATTEND Internal Medicine
PROC: 5A1D70Z Performance of Urinary Filtration, Intermittent, Less than 6 Hours Per Day (ICD-10-PCS; 2019-08-08)
PROC: 5A1D70Z Performance of Urinary Filtration, Intermittent, Less than 6 Hours Per Day (ICD-10-PCS; 2019-08-11)
PROC: 5A1D70Z Performance of Urinary Filtration, Intermittent, Less than 6 Hours Per Day (ICD-10-PCS; principal; 2019-08-13)
DX: T81.41XA Infection following a procedure, superficial incisional surgical site, initial encounter (principal); N18.6 End stage renal disease; I12.0 Hypertensive chronic kidney disease with stage 5 chronic kidney disease or end stage renal disease; L03.116 Cellulitis of left lower limb; Z99.2 Dependence on renal dialysis; E11.22 Type 2 diabetes mellitus with diabetic chronic kidney disease; D63.1 Anemia in chronic kidney disease; B95.2 Enterococcus as the cause of diseases classified elsewhere; B96.20 Unspecified Escherichia coli [E. coli] as the cause of diseases classified elsewhere; E66.9 Obesity, unspecified; I25.10 Atherosclerotic heart disease of native coronary artery without angina pectoris; Z83.3 Family history of diabetes mellitus; Z86.73 Personal history of transient ischemic attack (TIA), and cerebral infarction without residual deficits; Y83.8 Other surgical procedures as the cause of abnormal reaction of the patient, or of later complication, without mention of misadventure at the time of the procedure; Y92.89 Other specified places as the place of occurrence of the external cause; R47.1 Dysarthria and anarthria

== ENCOUNTER → 2019-11-06 | Outpatient (CLI) | payer MEDICARE ==
[~2019-11-06] MED LIST changes: -LEVO250T59 PO
== END | disposition home or self-care (01) ==
LOC: WHH 09:25
PROVIDERS: ATTEND Family Medicine
DX: E11.622 Type 2 diabetes mellitus with other skin ulcer (principal); L89.153 Pressure ulcer of sacral region, stage 3; L98.492 Non-pressure chronic ulcer of skin of other sites with fat layer exposed; L89.312 Pressure ulcer of right buttock, stage 2; L98.411 Non-pressure chronic ulcer of buttock limited to breakdown of skin; E11.22 Type 2 diabetes mellitus with diabetic chronic kidney disease; I12.0 Hypertensive chronic kidney disease with stage 5 chronic kidney disease or end stage renal disease; N18.6 End stage renal disease; I25.10 Atherosclerotic heart disease of native coronary artery without angina pectoris; E78.5 Hyperlipidemia, unspecified; E03.9 Hypothyroidism, unspecified; Z98.84 Bariatric surgery status; Z99.2 Dependence on renal dialysis; Z96.642 Presence of left artificial hip joint; Z86.73 Personal history of transient ischemic attack (TIA), and cerebral infarction without residual deficits
CPT/HCPCS: 11042; A4450; A6021

== ENCOUNTER → 2019-11-16 | Outpatient (CLI) | payer MEDICARE ==
[~2019-11-16] MED LIST changes: +LIDOCAINE HCL 4% LTA SOL 4 ML VIAL TP ONE
== END | disposition home or self-care (01) ==
LOC: WHH 10:20
PROVIDERS: ATTEND Family Medicine
DX: E11.622 Type 2 diabetes mellitus with other skin ulcer (principal); L89.154 Pressure ulcer of sacral region, stage 4; L98.492 Non-pressure chronic ulcer of skin of other sites with fat layer exposed; E11.22 Type 2 diabetes mellitus with diabetic chronic kidney disease; I12.0 Hypertensive chronic kidney disease with stage 5 chronic kidney disease or end stage renal disease; N18.6 End stage renal disease; E78.5 Hyperlipidemia, unspecified; I25.10 Atherosclerotic heart disease of native coronary artery without angina pectoris; E03.9 Hypothyroidism, unspecified; Z98.84 Bariatric surgery status; Z99.2 Dependence on renal dialysis; Z96.642 Presence of left artificial hip joint; Z86.73 Personal history of transient ischemic attack (TIA), and cerebral infarction without residual deficits
CPT/HCPCS: 11042; A6021

== ENCOUNTER 2019-12-29 14:19 | Day surgery (SDC) | payer MEDICARE ==
[2019-12-29] VITALS (8 sets, daily range): BP systolic 137–161; BP diastolic 70–86
[~2019-12-29 14:19] MED LIST changes: +AMLO-257 PO; -AMLO5TAB9 PO; -LIDOCAINE HCL 4% LTA SOL 4 ML VIAL TP ONE
[2019-12-29] MEDS ORDERED: SODIUM CHLORIDE 0.9% 500ML 500 ML IV ONE (15:08)
--- NOTE | 2019-12-29 15:58 | NUR ---
report fbs 70. dr castellanos gave orders to give 1/2 amp of d 50 ivp slow x 1 now Addendum: 12/29/19 at 1717 by LENNIE MEDEL RN RN pt asymptomatic
--- NOTE | 2019-12-29 16:00 | NUR ---
report taty aguero rn notified dr castellanos pt received heparin inj today of 5000 units subq. md will still proceed with procedure, no new orders given
[2019-12-29] MEDS ORDERED: SODIUM CHLORIDE 0.9% 1000ML 1,000 ML IV ONE (16:01)
[2019-12-29] MEDS ORDERED: METO5TAB87 PO (16:12)
[2019-12-29] MEDS ORDERED: heparin SQ (16:12)
[2019-12-29] MEDS ORDERED: FAMO20TA8 PO (16:12)
[2019-12-29] MEDS ORDERED: ASCO500T10 PO (16:12)
[2019-12-29] MEDS ORDERED: DEXTROSE 50%-WATER 50 ML DISP.SYRIN IV SCH (16:15)
--- NOTE | 2019-12-29 16:35 | NUR ---
labor conciliator pt taken to labor conciliator via bed. pt in no distress.
--- NOTE | 2019-12-29 16:40 | NUR ---
pre cath received pt for hd catheter placement. pt not able to articulate speech but is alert and oriented. pt oriented to room and call light. will continue to monitor pt Addendum: 12/29/19 at 1648 by LENNIE MEDEL RN RN pt in isolation for covid
[2019-12-29] MEDS ORDERED: LIDOCAINE HCL 1% MDV 50ML VIAL ONE (16:59)
--- NOTE | 2019-12-29 17:02 | NUR ---
notified after multiple attempts to notify family about procedure spoke to travis daughter and informed her father here and having temporary hemodialyisis catheter inserted for dialysis. daughter voiced understanding. if any questions or concerns daughter wants to be notified immediately
[2019-12-29] MEDS ORDERED: IOHEXOL-350 50ML VIAL IV ONE (17:10)
--- NOTE | 2019-12-29 17:24 | NUR ---
report received report from ambrosio eason from corn lab technician. monitor pt for 30min for bleeding and v/s. pt has ij josh to left chest wall/ pt received 1000 units of hepARIN. CATH MAY BE USED
--- NOTE | 2019-12-29 17:35 | NUR ---
POST PROCEDURE RECEIVED PT POST REJI INSERTION TO LEFT UPPER CHEST WALL AND NECK AREA. NO BLEEDING OR HEMATOMA NOTED. WILL CONTINUE TO MONITOR PT.
== END 2019-12-29 19:48 ==
LOC: DAH 14:19 → EDSTATUS 14:19 → DAH 14:20
PROVIDERS: ATTEND Internal Medicine Nephrology
DX: I12.0 Hypertensive chronic kidney disease with stage 5 chronic kidney disease or end stage renal disease (principal); E11.22 Type 2 diabetes mellitus with diabetic chronic kidney disease; N18.6 End stage renal disease; Z99.2 Dependence on renal dialysis; Z98.84 Bariatric surgery status; Z96.642 Presence of left artificial hip joint; J69.0 Pneumonitis due to inhalation of food and vomit; E05.90 Thyrotoxicosis, unspecified without thyrotoxic crisis or storm; Z79.899 Other long term (current) drug therapy
CPT/HCPCS: 36556; 77001; 82948 ×3; A4215; A4221; A4222 ×2; A4223 ×3; A4663 ×2; C1752; C1894; J1644 ×2; J3490; J7030 ×2; J7040; Q9967

== ENCOUNTER → 2020-01-07 | Outpatient (CLI) | payer MEDICARE ==
[~2020-01-07] MED LIST changes: +ASCO500T10 PO; +FAMO20TA8 PO; -METO50 PO; +METO5TAB87 PO; +heparin SQ
== END | disposition home or self-care (01) ==
LOC: RAH 17:28
PROVIDERS: ATTEND Family Medicine
DX: S09.90XD Unspecified injury of head, subsequent encounter (principal); X58.XXXD Exposure to other specified factors, subsequent encounter
CPT/HCPCS: 70450

== ENCOUNTER 2020-01-14 10:00 | Day surgery (SDC) | payer MEDICARE, OTHER ==
[2020-01-14] VITALS (7 sets, daily range): BP systolic 123–161; BP diastolic 59–68
[2020-01-14 10:58] LABS: POTASSIUM 4.7 mmol/L (3.5-5.1)
[2020-01-14 11:01] LABS: CREATININE 9.5 mg/dL (0.5-1.5)
[2020-01-14 11:02] LABS: INR 0.94 (0.85-1.15); PARTIAL THROMBOPLASTIN TIME 26.4 SEC (26.3-35.5); PROTHROMBIN TIME 10.2 SEC (9.6-11.6)
[2020-01-14] MEDS ORDERED: IODIXANOL 320 MG/ML 100 ML VIAL ONE (11:38)
[2020-01-14] MEDS ORDERED: HEPARIN SODIUM 1000UNIT/ML 10ML VIAL ONE (11:38)
[2020-01-14] MEDS ORDERED: LIDOCAINE HCL 1% MDV 50ML VIAL ONE (11:38)
--- NOTE | 2020-01-14 12:40 | NUR ---
REPORT: REPORT CALLED TO PRIMARY CARE NURSE, ISHAN GARCIA RN AT [facility].
--- NOTE | 2020-01-14 12:40 | NUR ---
post assessment: RETURNED FROM IR, PT AWAKE, ALERT AND ORIENTED X 3. DENIES ANY PAIN. DRESSING TO LEFT LOWER EXTREMITY DRY AND INTACT, NO REDNESS OR SWELLING TO SURROUNDING AREA. BRUIT AND THRILL STRONG.
== END 2020-01-14 14:20 | disposition home or self-care (01) ==
LOC: DAH 10:00
PROVIDERS: ATTEND Internal Medicine
DX: E11.22 Type 2 diabetes mellitus with diabetic chronic kidney disease (principal); I12.0 Hypertensive chronic kidney disease with stage 5 chronic kidney disease or end stage renal disease; N18.6 End stage renal disease; T82.868A Thrombosis due to vascular prosthetic devices, implants and grafts, initial encounter; N25.81 Secondary hyperparathyroidism of renal origin; Z79.01 Long term (current) use of anticoagulants; Z86.19 Personal history of other infectious and parasitic diseases; Z99.2 Dependence on renal dialysis; Z86.73 Personal history of transient ischemic attack (TIA), and cerebral infarction without residual deficits; Z98.890 Other specified postprocedural states; Z98.84 Bariatric surgery status; Z87.01 Personal history of pneumonia (recurrent); Y83.2 Surgical operation with anastomosis, bypass or graft as the cause of abnormal reaction of the patient, or of later complication, without mention of misadventure at the time of the procedure
CPT/HCPCS: 36415; 36905; 80048; 85610; 85730; C1725; C1757; C1769 ×2; C1894 ×2; J1644 ×2; J3490; Q9967

== ENCOUNTER 2020-02-08 10:26 | Emergency (ER) | payer MEDICARE, MEDICAID ==
[2020-02-08 10:49] LABS: BASOPHILS % (AUTO) 1.2 % (0.0-5.0); HEMATOCRIT 32.9 % (42-54); LYMPHOCYTES % (AUTO) 16.2 % (21.0-51.0); MEAN CORPUSCULAR HEMOGLOBIN 30.7 pg (27.0-33.0); MEAN CORPUSCULAR HGB CONC 31.6 g/dL (32.0-36.0); MEAN CORPUSCULAR VOLUME 97.1 fL (79-99); MONOCYTES % (AUTO) 8.9 % (3.0-13.0); NEUTROPHILS % (AUTO) 69.9 % (40.0-77.0); PLATELET COUNT (AUTO) 250 K/uL (130-400); RED BLOOD CELL COUNT(AUTO) 3.39 MIL/uL (4.50-6.20); RED CELL DISTRIBUTION WIDTH 13.5 % (11.0-15.5); WHITE BLOOD COUNT (AUTO) 6.6 K/uL (4.8-10.8)
[2020-02-08 11:09] LABS: POTASSIUM 5.4 mmol/L (3.5-5.1)
[2020-02-08 11:10] LABS: CREATININE 14.1 mg/dL (0.5-1.5)
== END 2020-02-08 12:02 | disposition home or self-care (01) ==
LOC: EDBD → EDH 10:26
DX: T82.838A Hemorrhage due to vascular prosthetic devices, implants and grafts, initial encounter (principal); I12.0 Hypertensive chronic kidney disease with stage 5 chronic kidney disease or end stage renal disease; E11.22 Type 2 diabetes mellitus with diabetic chronic kidney disease; N18.6 End stage renal disease; Z99.2 Dependence on renal dialysis; Z98.890 Other specified postprocedural states; Y83.8 Other surgical procedures as the cause of abnormal reaction of the patient, or of later complication, without mention of misadventure at the time of the procedure; Y92.89 Other specified places as the place of occurrence of the external cause
CPT/HCPCS: 36415; 80048; 85025

== ENCOUNTER 2020-02-09 08:29 | Observation (INO) | payer MEDICARE ==
[2020-02-09] VITALS (25 sets, daily range): BP systolic 100–144; BP diastolic 42–74
[~2020-02-09] VITALS: Ht 160 cm; Wt 76.9 kg
[~2020-02-09 08:29] MED LIST changes: +LISI10TA24 PO; -LISI10TA7 PO
[2020-02-09 08:51] LABS: BASOPHILS % (AUTO) 1.2 % (0.0-5.0); EOSINOPHILS % (AUTO) 2.4 % (0.0-8.0); HEMATOCRIT 30.6 % (42-54); LYMPHOCYTES % (AUTO) 10.9 % (21.0-51.0); MEAN CORPUSCULAR HGB CONC 31.7 g/dL (32.0-36.0); MEAN CORPUSCULAR VOLUME 97.8 fL (79-99); NEUTROPHILS % (AUTO) 76.1 % (40.0-77.0); PLATELET COUNT (AUTO) 259 K/uL (130-400); RED BLOOD CELL COUNT(AUTO) 3.13 MIL/uL (4.50-6.20); RED CELL DISTRIBUTION WIDTH 13.6 % (11.0-15.5); WHITE BLOOD COUNT (AUTO) 6.7 K/uL (4.8-10.8)
[2020-02-09 09:37] LABS: ALBUMIN 2.6 g/dL (3.5-5.0); BILIRUBIN,TOTAL 0.4 mg/dL (0.2-1.0); POTASSIUM 4.6 mmol/L (3.5-5.1); TOTAL PROTEIN, SERUM 6.5 g/dL (6.0-8.3)
[2020-02-09 09:39] LABS: CREATININE 8.3 mg/dL (0.5-1.5)
[2020-02-09] MEDS ORDERED: LACTULOSE 20 GM/30 ML UDCUP PO PRN (11:30)
[2020-02-09] MEDS ORDERED: MORPHINE 2 MG SYG IV PRN (11:30)
[2020-02-09] MEDS ORDERED: ONDANSETRON 4MG INJ IV PRN (11:30)
[2020-02-09] MEDS ORDERED: ACETAMINOPHEN 325 MG TAB PO PRN ×3 (11:30→16:15)
[2020-02-09] MEDS ORDERED: NITROGLYCERIN 0.4 MG SL TAB SL PRN (11:30)
[2020-02-09 12:14] LABS: HEMATOCRIT 31.4 % (42-54)
[2020-02-09 12:28] LABS: INR 1.02 (0.85-1.15); PROTHROMBIN TIME 10.9 SEC (9.6-11.6)
[2020-02-09 12:29] LABS: PARTIAL THROMBOPLASTIN TIME 28.7 SEC (26.3-35.5); POTASSIUM 4.5 mmol/L (3.5-5.1)
[2020-02-09] MEDS ORDERED: LISINOPRIL 10 MG TABLET PO SCH (12:30)
[2020-02-09 12:31] LABS: CREATININE 8.7 mg/dL (0.5-1.5)
[2020-02-09] MEDS ORDERED: CEFAZOLIN SODIUM 1 GM VIAL IVP PRN (13:15)
[2020-02-09] MEDS ORDERED: SUCCINYLCHOLINE CHLORIDE 20 MG/ML 10 ML VIAL ONE (13:29)
[2020-02-09] MEDS ORDERED: LIDOCAINE PF 100MG/5ML (2%) SYRINGE 5ML ONE (13:29)
[2020-02-09] MEDS ORDERED: PROPOFOL 10 MG/ML 20ML VIAL IV ONE (13:30)
[2020-02-09] MEDS ORDERED: FENTANYL CITRATE PF 50 MCG/1 ML 2ML VIAL ONE ×2 (13:31→16:16)
[2020-02-09] MEDS ORDERED: ROCURONIUM 10MG/1ML SYR 10 MG/ML ML ONE (13:31)
[2020-02-09] MEDS ORDERED: 0.9%NACL 1000ML 1,000 ML IV ONE (14:05)
[2020-02-09] MEDS ORDERED: 0.9%NACL 10ML VIAL ONE (14:06)
[2020-02-09] MEDS ORDERED: EPHEDRINE SULFATE 50 MG/ML AMPULE ONE (15:30)
[2020-02-09] MEDS ORDERED: TRAMADOL HCL 50 MG TABLET PO PRN ×2 (16:15)
[2020-02-09] MEDS ORDERED: VANCOMYCIN 1G VIAL ONE (16:22)
[2020-02-09 16:32] LABS: ABG BASE EXCESS -2.2 mmol/L (-2.0-3.0); ABG HCO3 23.3 mmol/L (21.0-28.0); ABG OXYGEN SATURATION 99.9 % (95.0-99.0); ABG PCO2 42 mmHg (35-48)
[2020-02-09 16:34] LABS: ABG BASE EXCESS -1.6 mmol/L (-2.0-3.0); ABG HCO3 23.8 mmol/L (21.0-28.0); ABG OXYGEN SATURATION 97.2 % (95.0-99.0); ABG PCO2 43 mmHg (35-48)
[2020-02-09] MEDS ORDERED: LIDOCAINE HCL 1% 20 ML VIAL ONE (16:39)
[2020-02-09] MEDS ORDERED: BUPIVACAINE/PF 0.5% 30ML VIAL ONE (16:39)
[2020-02-09] MEDS ORDERED: NEOSTIGMINE 5MG/5ML SYR IV ONE (16:56)
[2020-02-09] MEDS ORDERED: GLYCOPYRROLATE 1 MG/5 ML SYRINGE ONE (16:56)
[2020-02-09] MEDS: SEVELAMER HCL 800 MG TABLET PO SCH (17:00)
[2020-02-09] MEDS ORDERED: ESMOLOL HCL 10 MG/ML 10 ML VIAL ONE (17:01)
[2020-02-09] MEDS ORDERED: PROTAMINE SULFATE 10 MG/ML 5 ML VIAL ONE (17:02)
[2020-02-09] MEDS ORDERED: HEPARIN 10,000 UNIT/10ML (1,000 UNIT/ML) VIAL ONE (17:02)
[2020-02-09 18:29] LABS: HEMATOCRIT 28.2 % (42-54); MEAN CORPUSCULAR HEMOGLOBIN 31.5 pg (27.0-33.0); MEAN CORPUSCULAR HGB CONC 31.9 g/dL (32.0-36.0); MEAN CORPUSCULAR VOLUME 98.6 fL (79-99); RED BLOOD CELL COUNT(AUTO) 2.86 MIL/uL (4.50-6.20); RED CELL DISTRIBUTION WIDTH 13.5 % (11.0-15.5); WHITE BLOOD COUNT (AUTO) 8.8 K/uL (4.8-10.8)
[2020-02-09 18:44] LABS: POTASSIUM 4.5 mmol/L (3.5-5.1)
[2020-02-09] MEDS ORDERED: ATORVASTATIN 20 MG TABLET PO SCH (21:00)
[2020-02-09] MEDS ORDERED: FAMOTIDINE 20MG VIAL IV SCH (21:00)
[2020-02-09] MEDS ORDERED: METOPROLOL TARTRATE 25 MG TAB PO SCH (21:00)
[2020-02-09 21:05] LABS: HEMATOCRIT 25.6 % (42-54)
[2020-02-09 21:19] LABS: INR 1.02 (0.85-1.15); PROTHROMBIN TIME 10.9 SEC (9.6-11.6)
[2020-02-09] MEDS: CEFAZOLIN SODIUM 1 GM VIAL IVP SCH (22:40)
[2020-02-10 00:30] VITALS: BP 121/56
[2020-02-10 03:00] VITALS: BP 106/39
[2020-02-10] MEDS: CEFAZOLIN SODIUM 1 GM VIAL IVP SCH (06:01)
[2020-02-10] MEDS ORDERED: LEVOTHYROXINE 25 MCG TABLET PO SCH (06:30)
[2020-02-10] MEDS: SEVELAMER HCL 800 MG TABLET PO SCH (07:27)
[2020-02-10 07:56] VITALS: BP 149/64
[2020-02-10 08:49] LABS: HEMATOCRIT 22.9 % (42-54)
[2020-02-10 11:23] VITALS: BP 133/65
[2020-02-10 12:06] LABS: HEMATOCRIT 23.9 % (42-54)
[2020-02-10] MEDS ORDERED: EPOETIN ALFA-EPBX (ESRD) 10,000 UNIT/ML VIAL SQ SCH (21:00)
== END 2020-02-10 15:57 | disposition home or self-care (01) ==
LOC: EDBD 08:29 → EDH 08:29 → INTOOBSV 11:30 → EDHIP 11:30 → 4AH 18:05 → 4DH 18:06
PROVIDERS: ADMIT Internal Medicine; ATTEND Internal Medicine
DX: T82.838A Hemorrhage due to vascular prosthetic devices, implants and grafts, initial encounter (principal); U07.1 COVID-19; I12.0 Hypertensive chronic kidney disease with stage 5 chronic kidney disease or end stage renal disease; E11.22 Type 2 diabetes mellitus with diabetic chronic kidney disease; N18.6 End stage renal disease; E78.5 Hyperlipidemia, unspecified; E03.9 Hypothyroidism, unspecified; D64.9 Anemia, unspecified; E11.40 Type 2 diabetes mellitus with diabetic neuropathy, unspecified; Z87.891 Personal history of nicotine dependence; Z86.73 Personal history of transient ischemic attack (TIA), and cerebral infarction without residual deficits; Z99.2 Dependence on renal dialysis; Z98.84 Bariatric surgery status; Z79.899 Other long term (current) drug therapy; Y84.1 Kidney dialysis as the cause of abnormal reaction of the patient, or of later complication, without mention of misadventure at the time of the procedure; Y92.89 Other specified places as the place of occurrence of the external cause
CPT/HCPCS: 35236; 36415 ×2; 36600; 80053; 82435; 82803 ×2; 82947; 82948; 83605; 84132; 84145; 84295; 85014 ×4; 85018 ×5; 85025; 85027; 85610 ×2; 85730 ×2; 86850; 86900; 86901; 86923; 87426; 96361 ×2; 96374; 96375; 96376; 97039 ×2; 97161; 99284; A4215; A4221; A4222; A4223; A4663; A4930 ×3; A6207; A6219; C1713 ×2; G0168; G0378 ×23; G8978; G8979; G8980; G8981; G8982; G8983; J0330; J0690 ×3; J1644 ×2; J2001; J2704; J2710; J2720; J3010 ×2; J3370; J3490 ×5; J7030 ×2; U0003; 80048; 90935